=== PATIENT | male | born 1985 | race Caucasian/White ===

== ENCOUNTER 2018-03-23 16:42 | Outpatient (RCR) | payer OTHER ==
[2018-04-18] MEDS ORDERED: MULT-35 PO (12:05)
[2018-04-19] MEDS ORDERED: CLOM50TA18 PO ×2 (11:56→11:57)
[2018-04-19] MEDS ORDERED: HYDR-3870 PO (12:01)
[2018-04-19] MEDS ORDERED: CEPH-507 PO (12:01)
== END 2018-06-21 | disposition home or self-care (01) ==
LOC: LAB 16:42
PROVIDERS: ATTEND Urology
DX: N46.9 Male infertility, unspecified (principal); I86.1 Scrotal varices
CPT/HCPCS: 89320

== ENCOUNTER → 2018-03-28 | Outpatient (CLI) | payer OTHER ==
[~2018-03-28] MED LIST: CEPH-507 PO; CLOM50TA18 PO; HYDR-3870 PO; MULT-35 PO
--- NOTE | 2018-03-28 13:37 | Diagnostic Imaging Report ---
INDICATION: Left varicocele. FINDINGS: The right testicle is surgically absent. The left testicle measures 4.5 x 2.5 x 2.9 cm. Left testicle does demonstrate homogeneous echotexture. No mass or vascular compromise is seen. There is no hydrocele identified. There is a large left varicocele located lateral and inferior to the left testicle. IMPRESSION: 1. Status post right orchiectomy. 2. No evidence of left testicular mass or vascular compromise. 3. Large left varicocele. Dictated by: Dictated on workstation # [id number]
== END ==
LOC: RAD 12:48
PROVIDERS: ATTEND Urology
DX: I86.1 Scrotal varices (principal); Z90.79 Acquired absence of other genital organ(s)
CPT/HCPCS: 76870

== ENCOUNTER 2018-04-18 05:49 | Outpatient (CLI) | payer OTHER ==
[~2018-04-18] VITALS: Ht 182.9 cm; Wt 96.2 kg
[2018-04-18] MEDS ORDERED: MULT-35 PO (12:05)
[2018-04-19] MEDS ORDERED: CLOM50TA18 PO ×2 (11:56→11:57)
[2018-04-19] MEDS ORDERED: HYDR-3870 PO (12:01)
[2018-04-19] MEDS ORDERED: CEPH-507 PO (12:01)
== END 2018-04-18 12:19 | disposition home or self-care (01) ==
LOC: PREOP 05:49
PROVIDERS: ATTEND Urology
DX: Z01.818 Encounter for other preprocedural examination (principal)

== ENCOUNTER 2018-04-19 07:03 | Day surgery (SDC) | payer OTHER ==
[~2018-04-19] VITALS: Ht 182.9 cm; Wt 96.2 kg
[~2018-04-19 07:03] MED LIST changes: -CEPH-507 PO; -CLOM50TA18 PO; -HYDR-3870 PO
--- NOTE | 2018-04-19 07:09 | Progress Note-Pre Operative ---
Pre-Operative Progress Note H&P Reviewed The H&P was reviewed, patient examined and no changes noted. Date Seen by Provider: Apr 19, 2018 Time Seen by Provider: 07:08 Date H&P Reviewed: Apr 19, 2018 Time H&P Reviewed: 07:08 Pre-Operative Diagnosis: LT GRADE 2 SYMPTOMATIC VARICOCELE MAGNLOIA MERINO MD Apr 19, 2018 7:08 am
--- NOTE | 2018-04-19 07:09 | Progress Note-Post Operative ---
Post-Operative Progess Note Surgeon (s)/Elastic Tape Inserter (s) Surgeon MAGNOLIA MERINO MD Elastic Tape Inserter: N/A Pre-Operative Diagnosis LT GRADE 2 SYMPTOMATIC VARICOCELE Post-Operative Diagnosis SAME Procedure & Operative Findings Date of Procedure 04/19/18 Procedure Performed/Findings LT SPERMATIC VEIN LIGATION Anesthesia Type GENERAL Estimated Blood Loss Estimated blood loss (mL): NEGLIGIBLE Specimens/Packing Specimens Removed LT SPERMATIC VEINS (2) Packing: N/A MAGNOLIA MERINO MD Apr 19, 2018 7:09 am
[2018-04-19 07:10] VITALS: BP 145/83
--- NOTE | 2018-04-19 07:11 | Discharge Inst-Urology ---
Discharge Inst-Urology Discharge Medications New, Converted, or Re-newed RX: RX on Chart Patient Instructions/Follow Up Plan Please make appointment to been seen in office in 2 weeks, rest till then Tomorrow start showers, no bath Keep bowels soft and moving Increase oral fluids for 48 hours and then as needed. Diet and Activity as tolerated. If questions or concerns contact your physician Or seek help at emergency department. MAGNOLIA MERINO MD Apr 19, 2018 7:11 am
[2018-04-19] MEDS ORDERED: ceFAZolin INJECTION 1,000 MG in NS (IVPB) 50 ML IV ONE (07:15)
[2018-04-19] MEDS ORDERED: MIDAZOLAM 2 MG/2 ML (VERSED) VIAL IV ONE ×2 (07:30→08:45)
[2018-04-19] MEDS ORDERED: MIDAZOLAM 2 MG/2 ML (VERSED) VIAL ONE ×2 (07:32→08:00)
[2018-04-19] MEDS: LACTATED RINGERS 1,000 ML IV PRN ×2 (07:45→08:54)
[2018-04-19] MEDS ORDERED: fentaNYL INJECTION 100 MCG/2 ML AMP ONE ×2 (08:00→09:58)
[2018-04-19] MEDS ORDERED: DEXAMETHASONE 10 MG/ML (DECADRON) 1 ML VIAL ONE (08:01)
[2018-04-19] MEDS ORDERED: SEVOFLURANE (ULTANE) 15 ML INHAL SOLN ONE (08:01)
[2018-04-19] MEDS ORDERED: LIDOCAINE PF 2% 5 ML (XYLOCAINE) VIAL ONE (08:01)
[2018-04-19] MEDS ORDERED: proPOfol 200 MG/20 ML (DIPRIVAN) VIAL IV ONE (08:01)
[2018-04-19] MEDS ORDERED: ONDANSETRON 4 MG/2 ML (SDV) Z0FRAN ONE (08:02)
[2018-04-19] MEDS: fentaNYL INJECTION 100 MCG/2 ML AMP IVP PRN ×2 (10:00→10:10)
[2018-04-19] MEDS ORDERED: KETOROLAC 30 MG/ML VIAL ONE (10:09)
[2018-04-19] MEDS ORDERED: KETOROLAC 30 MG/ML VIAL IVP ONE (10:15)
[2018-04-19] MEDS ORDERED: ONDANSETRON 4 MG/2 ML (SDV) Z0FRAN IVP PRN (10:15)
[2018-04-19] MEDS ORDERED: HYDROmorphone 1 MG/ML (DILAUDID) 1 ML SYRINGE IV PRN (10:15)
[2018-04-19 10:30] VITALS: BP 120/59
[2018-04-19] MEDS ORDERED: HYDROcodone/APAP 5 MG/325 MG (LORTAB) TAB ONE (10:48)
[2018-04-19] MEDS: HYDROcodone/APAP 5 MG/325 MG (LORTAB) TAB PO PRN ×2 (10:53→11:37)
[2018-04-19 11:00] VITALS: BP 115/59
[2018-04-19 11:45] VITALS: BP 119/58
--- NOTE | 2018-04-19 11:47 | Anesthesia-General Post-Op ---
General Patient Condition Mental Status/LOC: Same as Preop Cardiovascular: Satisfactory Nausea/Vomiting: Absent Respiratory: Satisfactory Pain: Controlled Complications: Absent Post Op Complications Complications None Follow Up Care/Instructions Patient Instructions None needed. Anesthesia/Patient Condition Patient Condition Patient is doing well, no complaints, stable vital signs, no apparent adverse anesthesia problems. No complications reported per nursing. ROSELIA PRITCHETT CRNA Apr 19, 2018 11:47
[2018-04-19] MEDS ORDERED: CLOM50TA18 PO ×2 (11:56→11:57)
[2018-04-19] MEDS ORDERED: CEPH-507 PO (12:01)
[2018-04-19] MEDS ORDERED: HYDR-3870 PO (12:01)
[2018-04-19 12:20] VITALS: BP 119/58
--- NOTE | 2018-04-19 14:08 | OPERATIVE REPORT ---
DATE OF SERVICE: 04/19/2018 PREOPERATIVE DIAGNOSIS: Grade II symptomatic left varicocele in a solitary testicle. POSTOPERATIVE DIAGNOSIS: Grade II symptomatic left varicocele in a solitary testicle. OPERATION PERFORMED: Left spermatic vein ligation. SURGEON: Magnolia Merino MD ANESTHESIA: General. COMPLICATIONS: None. DESCRIPTION OF PROCEDURE: Under satisfactory general anesthesia, the patient in supine position, genitalia, abdomen and thigh were prepped and draped in the usual sterile fashion. Left inguinal incision was made, carried through the skin, subcutaneous tissue and fascia. The external oblique aponeurosis was incised along the direction of the fibers. The ilioinguinal nerve was identified and preserved throughout whole surgery. Careful dissection of the spermatic cord was carried and then an umbilical tape was passed around it and hold it at the internal ring in order to dilate the veins. I identified two large veins and carefully dissected them and excised a good portion of them. The ends were ligated with 2-0 silk ligature and cauterized. There was no further dilated vein. There was no dilated vein in the inguinal floor. The vas deferens was identified and intact and again the ilioinguinal nerve as well. The testicle felt firm and nice at the end of the procedure. Closure was performed in layers, first the external oblique with interrupted 2-0 silk suture, again taking care to avoid nerve. Then, the Amparo's fascia and subcutaneous tissue with interrupted 3-0 plain and the skin with a subcuticular running 4-0 Vicryl. Steri-Strips and Op-Site was applied. Needle, sponge, instrument counts were correct x2. Estimated blood loss negligible. The patient tolerated the procedure and anesthesia well and was sent to recovery room in stable condition. Instructions were given to the and preoperatively to the patient. Job ID: [id number] DocumentID: [id number] Dictated Date: 04/19/2018 09:16:56 Survey And Mapping Technician Date: 04/19/2018 14:06:57 Dictated By: MAGNOLIA MERINO MD [facility]
== END 2018-04-19 12:20 | disposition home or self-care (01) ==
LOC: SDC 07:03
PROVIDERS: ATTEND Urology
DX: I86.1 Scrotal varices (principal)
CPT/HCPCS: 87081